=== PATIENT | female | born 1995 | race American Indian/Alaskan Native ===

== ENCOUNTER 2018-03-19 14:46 | Emergency (ER) | payer MEDICAID ==
[2018-03-19 14:55] VITALS: BP 147/94
== END 2018-03-19 16:40 | disposition left against medical advice (07) ==
LOC: ED 14:46
DX: F41.9 Anxiety disorder, unspecified (principal); Z53.21 Procedure and treatment not carried out due to patient leaving prior to being seen by health care provider